=== PATIENT | male | born 1965 | race Two or more races ===

== ENCOUNTER 2016-10-08 09:55 | Emergency (ER) | payer SELFPAY ==
[~2016-10-08] VITALS: Ht 175.3 cm; Wt 81.6 kg
[2016-10-08 09:59] VITALS: BP 126/71
[2016-10-08] MEDS ORDERED: ACETAMINOPHEN 325 MG TABLET ONE (10:23)
[2016-10-08] MEDS ORDERED: ACETAMINOPHEN 325 MG TABLET PO ONE (10:30)
== END 2016-10-08 11:25 | disposition home or self-care (01) ==
LOC: ER 09:58
DX: M54.5 Low back pain (principal); V49.40XA Driver injured in collision with unspecified motor vehicles in traffic accident, initial encounter; Y93.9 Activity, unspecified; Y92.9 Unspecified place or not applicable; Y99.9 Unspecified external cause status
CPT/HCPCS: 72110; 99284; A4606; Z7610

== ENCOUNTER 2023-02-10 08:45 | Emergency (ER) | payer BC ==
[~2023-02-10] VITALS: Ht 182.9 cm; Wt 83.9 kg
--- NOTE | 2023-02-10 09:05 | NUR ---
CHEST PAIN RADIATING TO BACK AND RIGHT ARM SINCE WEDNESDAY.
--- NOTE | 2023-02-10 09:07 | NUR ---
IV LINE RIGHT AC 20 G ,
--- NOTE | 2023-02-10 09:10 | NUR ---
BLOOD SAMPLE TAKEN SENT TO LAB
[2023-02-10 09:43] LABS: BASOPHILS % (AUTO) 0.7 % (0.0-2.0); EOSINOPHILS % (AUTO) 3.2 % (0.0-6.0); HEMATOCRIT 43 % (39-51); HEMOGLOBIN 14.3 g/dL (13.5-17.5); LYMPHOCYTES # (AUTO) 1.9 K/uL (0.8-4.8); LYMPHOCYTES % (AUTO) 39.5 % (20.0-44.0); MEAN CORPUSCULAR HGB CONC 34 g/dl (31.0-36.0); MEAN CORPUSCULAR VOLUME 100 fL (80-96); MONOCYTES # (AUTO) 0.4 K/uL (0.1-1.30); MONOCYTES % (AUTO) 8.4 % (2.0-12.0); NEUTROPHILS # (AUTO) 2.3 K/uL (1.8-8.9); NEUTROPHILS % (AUTO) 48.2 % (43.0-81.0); PLATELET COUNT (AUTO) 182 K/uL (150-450); RED BLOOD CELL COUNT(AUTO) 4.28 MIL/uL (4.5-6.0); WHITE BLOOD COUNT (AUTO) 4.8 K/uL (4.3-11.0)
[2023-02-10 09:51] LABS: CARBON DIOXIDE 25 mmol/L (21-32); CHLORIDE 102 mmol/L (98-107); CREATININE 0.9 mg/dL (0.6-1.3); GLUCOSE 112 mg/dL (74-106); POTASSIUM 3.9 mmol/L (3.5-5.1); SODIUM SERUM 136 mmol/L (136-145); UREA NITROGEN, BLOOD 13 mg/dL (7-18)
[2023-02-10] MEDS ORDERED: KETOROLAC TROMETHAMINE INJ 30 MG/ML VIAL IV ONE (11:30)
[2023-02-10] MEDS ORDERED: IV NS 0.9% 1,000 ML IV ONE (11:30)
--- NOTE | 2023-02-10 11:30 | NUR ---
URINE COLLECTED AND SENT TO LAB
[2023-02-10] MEDS ORDERED: KETOROLAC TROMETHAMINE 15 MG/ML VIAL ONE (11:31)
[2023-02-10] MEDS ORDERED: IBUP-1955 PO (13:40)
[2023-02-10] MEDS ORDERED: CYCL5TAB PO (13:40)
--- NOTE | 2023-02-10 13:54 | NUR ---
Patient discharged to home in stable condition. Written and verbal after care instructions given. Patient verbalizes understanding of instruction.
--- NOTE | 2023-02-10 13:54 | NUR ---
IV removed. Catheter intact and site benign. Pressure and 4x4 applied to site. No bleeding noted.
[2023-02-10 13:55] VITALS: BP 141/79
== END 2023-02-10 13:55 | disposition home or self-care (01) ==
LOC: ER 08:49
DX: M50.30 Other cervical disc degeneration, unspecified cervical region (principal); M54.12 Radiculopathy, cervical region; M48.02 Spinal stenosis, cervical region; R07.89 Other chest pain; R03.0 Elevated blood-pressure reading, without diagnosis of hypertension; Z60.2 Problems related to living alone
CPT/HCPCS: 99285; 96374; 96361; 93005 ×2; 71045; 72125; 70450; 85025; 80048; 36415; 84484 ×2; 80320; 80307; J7030; J1885; G0480